=== PATIENT | male | born 1975 | race Caucasian/White ===

== ENCOUNTER 2017-05-23 13:58 | Inpatient (IN) | payer OTHER ==
[~2017-05-23] VITALS: Ht 177.8 cm; Wt 92.0 kg
[~2017-05-23 13:58] MED LIST: NORCO 5/3251 TABLET PO; ZYRTEC10 M2 PO
[2017-05-23 16:03] LABS: ADD MIUA? NO; BILIRUBIN NEGATIVE; BLOOD NEGATIVE; COLOR YELLOW ((YELLOW)); GLUCOSE (STRIP) NEGATIVE; KETONES NEGATIVE; LEUKOCYTES NEGATIVE; NITRITE NEGATIVE; PROTEIN (STRIP) NEGATIVE; SPECIFIC GRAVITY 1.006 (1.000-1.030); UCUL ADDED? NO; UROBILINOGEN 0.2 MG/DL (0.2-1.0)
[2017-05-23 16:04] LABS: EOSINOPHIL (%) 0.5 % (0-5); HEMATOCRIT 46.3 % (38.0-50.0); IMMATURE GRANULOCYTE (%) 0.9 % (0.0-0.7); IMMATURE GRANULOCYTE COUNT 0.1 K/uL; INSTRUMENT ABS NEUTROPHIL CT 5.3 K/uL; LYMPHOCYTE COUNT 0.4 K/uL (1.0-2.8); MCH 31.3 PG (29.0-34.0); MCHC 34.8 G/DL (30.0-36.0); MCV 89.9 FL (86-99); MEAN PLAT.VOLUME 11.2 uM^3 (9.0-12.4); MONOCYTE (%) 11.4 % (3-12); MONOCYTE COUNT 0.8 K/uL (0-0.8); NEUTROPHIL (%) 80.5 % (45-76); NEUTROPHIL COUNT 5.3 K/uL (1.8-6.4); PLATELET COUNT 100 K/uL (156-360); RBC DIS.WIDTH-CV 11.8 % (11.8-14.6); RBC DIS.WIDTH-SD 38.7 % (39-53); RED BLOOD COUNT 5.15 M/uL (4.00-5.50); WHITE BLOOD COUNT 6.6 K/uL (4.1-10.2)
[2017-05-23 16:13] LABS: CHLORIDE 102 mEq/L (99-109); SODIUM 135 mEq/L (136-147)
[2017-05-23 16:15] LABS: GLUCOSE 103 mg/dL (70-99)
[2017-05-23 16:16] LABS: ANION GAP 12 MEQ/L (2-14)
[2017-05-23 16:17] LABS: TOTAL BILIRUBIN 0.8 mg/dL (0.0-1.0)
[2017-05-23 16:18] LABS: ALKALINE PHOSPHATASE 101 IU/L (3-129); GFR ESTIMATE (CALCULATED) > 59 mL/min/
[2017-05-23 16:20] LABS: UREA NITROGEN (BUN) 12 mg/dL (9-23)
[2017-05-23 16:27] LABS: TROP-I INTERPRETATION NEGATIVE; TROPONIN-I < 0.01 ng/mL (0.0-0.30)
[2017-05-23] MEDS ORDERED: WELLBUTRIN XL150 MG PO (18:47)
[2017-05-23] MEDS ORDERED: ALPRAZOLAM0.25 M2 PO (18:47)
[2017-05-23] MEDS ORDERED: B-COMPLEX-VITA1 EACH PO (18:48)
[2017-05-23] MEDS ORDERED: OMEGA 3 500 SO1 EACH PO (18:48)
[2017-05-23 19:29] VITALS: BP 108/69
[2017-05-23 19:59] VITALS: BP 107/70
[2017-05-23 20:59] VITALS: BP 115/73
[2017-05-23 21:34] VITALS: BP 111/60
[2017-05-23 22:29] VITALS: BP 138/77
[2017-05-23 22:59] VITALS: BP 128/62
[2017-05-24 01:59] VITALS: BP 116/73
[2017-05-24 06:25] LABS: HEMATOCRIT 38.4 % (38.0-50.0); MCH 30.8 PG (29.0-34.0); MCHC 33.9 G/DL (30.0-36.0); MEAN PLAT.VOLUME 10.7 uM^3 (9.0-12.4); PLATELET COUNT 86 K/uL (156-360); RBC DIS.WIDTH-SD 40.3 % (39-53); RED BLOOD COUNT 4.22 M/uL (4.00-5.50); WHITE BLOOD COUNT 4.9 K/uL (4.1-10.2)
[2017-05-24 06:50] LABS: ALKALINE PHOSPHATASE 64 IU/L (3-129); ANION GAP 6 MEQ/L (2-14); CHLORIDE 108 MEQ/L (99-109); CREATINE KINASE 74 IU/L (1-294); DIRECT BILIRUBIN 0.2 mg/dL (0.0-0.3); GFR ESTIMATE (CALCULATED) > 59 mL/min/; GLUCOSE 110 mg/dL (70-99); POTASSIUM 3.9 MEQ/L (3.7-5.4); SAMPLE HEMOLYSIS CHECK 0; SAMPLE ICTERIC CHECK 0; SAMPLE LIPEMIA CHECK 0; SODIUM 139 MEQ/L (136-147); TOTAL BILIRUBIN 0.7 MG/DL (0.0-1.0); TOTAL CK 74 IU/L (1-294); UREA NITROGEN (BUN) 9 mg/dL (9-23)
[2017-05-24 07:43] VITALS: BP 105/57
[2017-05-24 09:03] LABS: CK-MB 0.5 ng/mL (0.0-4.9)
[2017-05-24 12:00] VITALS: BP 144/75
[2017-05-24 16:17] VITALS: BP 131/70
[2017-05-24 20:16] VITALS: BP 113/58
[2017-05-24 22:56] VITALS: BP 123/70
[2017-05-25 04:23] VITALS: BP 123/68
[2017-05-25 08:01] VITALS: BP 127/68
[2017-05-25 11:53] VITALS: BP 127/70
[2017-05-25 15:50] VITALS: BP 122/75
[2017-05-25 19:12] VITALS: BP 126/76
[2017-05-25 22:35] VITALS: BP 124/56
[2017-05-26 02:57] VITALS: BP 123/75
[2017-05-26 08:09] VITALS: BP 108/72
[2017-05-26 11:43] VITALS: BP 121/76
[2017-05-26 14:23] LABS: HPCA INDEX 0.09
[2017-05-26 14:24] LABS: ANTI-HEPATITIS A VIRUS (IGM) Nonreactive
[2017-05-26 14:25] LABS: ANTI-HEPATITIS B CORE (IGM) Nonreactive; HBC IgM INDEX 0.06
[2017-05-26] MEDS ORDERED: FLUOXETINE HCL10 MG PO (15:07)
[2017-05-26 15:57] VITALS: BP 125/76
== END 2017-05-26 16:11 | disposition home or self-care (01) | DRG 897 ==
LOC: EME 13:58 → EDOF 20:40 → 5EAST 20:40 → ENRESERV 20:43 → 5EAST 21:28
PROVIDERS: Emergency Medicine; Hospitalist
DX: F19.239 Other psychoactive substance dependence with withdrawal, unspecified (principal); R74.0 Nonspecific elevation of levels of transaminase and lactic acid dehydrogenase [LDH]; F41.1 Generalized anxiety disorder; F32.9 Major depressive disorder, single episode, unspecified; L73.8 Other specified follicular disorders; R59.1 Generalized enlarged lymph nodes; I10 Essential (primary) hypertension; Z87.891 Personal history of nicotine dependence
CPT/HCPCS: 71010; 80048; 80053; 80074; 80076; 81003; 82550; 82553; 83605; 84484; 85025; 85027; 87040; 99281; 99285; J1650; J7120